=== PATIENT | female | born 1975 | race African-American/Black ===

== ENCOUNTER → 2017-02-02 18:17 | Emergency (ER) | payer OTHER ==
--- NOTE | ~2017-02-02 | CR58 ---
[facility] A Service of [facility] [place] RADIOLOGY TEXT RESULTS PATIENT: JASEN MORALES LOCATION: [facility] : 77 UNIT #: [id number] AGE: [address]: Katey Skinner SEX: F ORDER DR: [id number] [facility] [address] [place], [place] [address] [id number] MR#: [id number] #: [id number] NAME: JASEN MORALES : 1975 SEX: F STUDY DATE/TIME: 02/02/2017 17:03 UNIT: CFTX ROOM: STUDY DESCRIPTION: CR Cervical Spine 2 or 3 Views Attending Physician: Katey Skinner P.A.-C. Ordering Physician: Katey Skinner P.A.-C. Primary Care Physician: No Primary Care Physician MEDICAL IMAGING REPORT This report is preliminary unless electronic signature is present EXAM Cervical spine series. DATE OF EXAM 02/02/2017 HISTORY Radiculopathy. Pain. Right shoulder pain began 1 week ago. No known injury. REPORT AP lateral, open mouth odontoid and submental vertex views of the cervical spine are presented. COMPARISON 02/26/2009 FINDINGS Alignment in frontal projection normal. In lateral projection, there is reversal of normal cervical lordosis centered at the C5-C6 level. This is new compared to prior examination. Vertebral body heights are normal. There is overall decrease in the intervertebral disc space heights with moderate narrowing at the C5-C6 and marked narrowing of the C6-C7 level. These changes are new. Mild facet degenerative changes. No fracture. There are anterior osteophyte formations at multiple levels most pronounced C5-C6, C6-C7. There is a suggestion of posterior osteophyte formations at these levels as well. These findings are new. Prevertebral soft tissues unremarkable. C1-C2 relationship normal. Odontoid process intact. Visualized bony thorax normal. Visualized pulmonary parenchyma clear. Scattered dental hardware. Patient missing multiple teeth. IMPRESSION 1. Compared to February 2009, there has been a significant progression of [facility] A Service of [facility] [place] RADIOLOGY TEXT RESULTS PATIENT: JASEN MORALES LOCATION: [facility] #: [id number] : 77 UNIT #: [id number] AGE: [address]: Katey Skinner SEX: F ORDER DR: degenerative change in the cervical spine. There is new reversal of normal cervical lordosis, centered at the C5-C6 level. New moderate disc space narrowing C5-C6 and marked disc space narrowing C6-C7. New anterior and probable posterior osteophytes at C5-C6 and C6-C7 as well. There is no evidence of fracture or traumatic malalignment. The paraspinal soft tissues are unremarkable. 2. If it would assist in patient management, the spinal canal and neural foraminal contents could best be further evaluated with elective MRI if patient is a candidate for CT. 3. See remainder of incidental findings in body of report above. Dictated by... Doc Nguyễn M.D. THIS IS AN ELECTRONICALLY VERIFIED REPORT Doc Nguyễn M.D. at 02/09/2017 11:07 PM Mili TD: 02/02/2017 19:04 JOB #: [id number] MEDICAL IMAGING REPORT Page 1 of 1 COPY
[~2017-02-02 18:17] MED LIST: BACTRIM DS TABL1 TA1 PO; PYRIDIUM PO; ZOFRAN PO
== END | disposition home or self-care (01) ==
LOC: CED 18:17
DX: M54.12 Radiculopathy, cervical region (principal); Z88.1 Allergy status to other antibiotic agents; Z79.899 Other long term (current) drug therapy
CPT/HCPCS: 72040; 96372; 99283; J1885

== ENCOUNTER 2017-06-15 19:22 | Emergency (ER) | payer OTHER | END 2017-06-15 21:15 | disposition home or self-care (01) | LOC: CED 19:22 | DX: J02.0 Streptococcal pharyngitis (principal); Z88.1 Allergy status to other antibiotic agents; Z79.899 Other long term (current) drug therapy | CPT/HCPCS: 87880; 99283 ==